=== PATIENT | male | born 1935 | race Caucasian/White ===

== ENCOUNTER 2016-08-09 15:44 | Inpatient (IN) | payer OTHER ==
[~2016-08-09] VITALS: Ht 180.3 cm; Wt 107.5 kg
[2016-08-09 16:28] LABS: Urine Bilirubin Negative (Negative); Urine Color Yellow (Yellow); Urine Glucose Normal (Normal); Urine Ketone Negative (Negative); Urine Nitrite Negative (Negative); Urine RBC 21 /hpf (0 - 3); Urine Urobilinogen Normal (Negative); Urine pH 5.5 (5.0-8.0)
[2016-08-09 16:33] LABS: Urine Blood 3+ /uL (Negative)
[2016-08-09 17:36] LABS: DEFINITIVE VIEW TRANSMISSION; Hematocrit 34.2 % (41.0-53.0); Hemoglobin 11.1 g/dL (13.5-17.5); Mean Corpuscular Hemoglobin 31.4 pg (28.0-32.0); Mean Corpuscular Hgb Conc. 32.5 g/dL (32.0-36.0); Mean Corpuscular Volume 96.7 fL (80.0-100.0); Mean Platelet Volume 8.9 fL (7.4-10.4); Platelet Count (auto) 228 10^3/uL (140-450); Red Cell Distribution Width 14.9 % (11.6-16.0)
[2016-08-09 17:47] LABS: Albumin 3.1 g/dL (3.4-5.0); BUN/Creatinine Ratio 14.5; Bilirubin, Total 0.5 mg/dL (0.2-1.0); Calcium 8.5 mg/dL (8.5-10.1); Magnesium 1.7 mg/dL (1.6-2.6); Potassium 4.2 mmol/L (3.5-5.1); Total Protein 6.6 g/dL (6.4-8.2)
[2016-08-09 18:03] LABS: White Blood Cell 33.9 10^3/uL (4.4-10.8)
[2016-08-09 18:04] LABS: Metamyelocytes % 0; Myelocytes % 0; Promyelocytes % 0; Reactive Lymphocytes 0
[2016-08-09 18:45] LABS: Platelet Estimate Adequate
[2016-08-09] MEDS ORDERED: SODIUM CHLORIDE 0.9% 1,000 ML IVB ONE (19:21)
[2016-08-09] MEDS ORDERED: cefTRIAXone 1GM/50ML D5W 50 ML IV ONE (19:30)
[2016-08-09 19:39] LABS: Amylase 74 U/L (25-115)
[2016-08-09 19:49] LABS: Partial Thromboplastin Time 28.5 sec (22.64-33.71)
[2016-08-09 19:58] LABS: INR 1.23 (0.9-1.15); Prothrombin Time 12.7 sec (9.37-12.3)
[2016-08-09] MEDS: SODIUM CHLORIDE 0.9% 1,000 ML IV SCH (22:22)
[2016-08-09] MEDS ORDERED: LACTULOSE 20Gm/30ML SOLN PO PRN (22:30)
[2016-08-09] MEDS ORDERED: MORPHINE SULFATE 4 MG/ML SYRG IV PRN (22:45)
[2016-08-10 00:30] VITALS: BP 159/85
[2016-08-10 01:21] LABS: BUN/Creatinine Ratio 12.9; Calcium 7.9 mg/dL (8.5-10.1); Potassium 3.6 mmol/L (3.5-5.1)
[2016-08-10 05:00] VITALS: BP 140/94
[2016-08-10 05:49] LABS: DEFINITIVE VIEW TRANSMISSION; Hemoglobin 9.9 g/dL (13.5-17.5); Mean Corpuscular Hemoglobin 31.1 pg (28.0-32.0); Mean Corpuscular Hgb Conc. 31.8 g/dL (32.0-36.0); Platelet Count (auto) 197 10^3/uL (140-450); Red Cell Distribution Width 14.8 % (11.6-16.0); White Blood Cell 28.2 10^3/uL (4.4-10.8)
[2016-08-10] MEDS: SODIUM CHLORIDE 0.9% 1,000 ML IV SCH ×2 (06:22→22:22)
[2016-08-10 06:31] LABS: Albumin 2.7 g/dL (3.4-5.0); BUN/Creatinine Ratio 14.8; Bilirubin, Total 0.4 mg/dL (0.2-1.0); Calcium 8.2 mg/dL (8.5-10.1); Potassium 4.1 mmol/L (3.5-5.1); Total Protein 5.9 g/dL (6.4-8.2)
[2016-08-10 06:47] LABS: Metamyelocytes % 0; Myelocytes % 0; Promyelocytes % 0; Reactive Lymphocytes 0
[2016-08-10] MEDS: ONDANSETRON HCL 4 MG/2 ML VIAL IV PRN (08:03)
[2016-08-10 08:16] LABS: Platelet Estimate Adequate
[2016-08-10 09:19] VITALS: BP 153/97
[2016-08-10] MEDS: PANTOPRAZOLE SODIUM 40 MG/10 ML VIAL IV SCH (09:26)
[2016-08-10] MEDS: ASPirin 81 mg TAB PO SCH (09:27)
[2016-08-10] MEDS: METOPROLOL TARTRATE 50 MG TAB PO SCH ×2 (09:27→21:51)
[2016-08-10] MEDS: NIFEdipine ER 30 MG TAB PO SCH (09:28)
[2016-08-10] MEDS ORDERED: ENOXAPARIN SOD 30 MG/0.3 ML SYRINGE SC SCH (10:00)
[2016-08-10 13:00] VITALS: BP 157/65
[2016-08-10] MEDS ORDERED: MORPHINE SULFATE 4 MG/ML SYRG IV PRN (13:00)
[2016-08-10] MEDS ORDERED: HYDROcodone-ACET 5/325MG TAB PO PRN (13:00)
[2016-08-10] MEDS ORDERED: TEMAZEPAM 15 MG CAP PO PRN (13:00)
[2016-08-10 17:22] VITALS: BP 146/56
[2016-08-10] MEDS: cefTRIAXone 1GM/50ML D5W 50 ML IV SCH (21:07)
[2016-08-10] MEDS: ATORVASTATIN 20 MG TAB PO SCH (21:50)
[2016-08-10] MEDS: traZODone HCL 50 MG TAB PO SCH (21:50)
[2016-08-10 22:00] VITALS: BP 133/62
[2016-08-11] MEDS: SODIUM CHLORIDE 0.9% 1,000 ML IV SCH ×2 (01:16→18:22)
[2016-08-11 05:00] VITALS: BP 122/76
[2016-08-11 06:05] LABS: DEFINITIVE VIEW TRANSMISSION; Hematocrit 30.5 % (41.0-53.0); Hemoglobin 9.9 g/dL (13.5-17.5); Mean Corpuscular Hemoglobin 31.6 pg (28.0-32.0); Mean Corpuscular Hgb Conc. 32.6 g/dL (32.0-36.0); Mean Corpuscular Volume 96.8 fL (80.0-100.0); Mean Platelet Volume 9.1 fL (7.4-10.4); Platelet Count (auto) 174 10^3/uL (140-450); Red Cell Distribution Width 14.1 % (11.6-16.0); White Blood Cell 25.8 10^3/uL (4.4-10.8)
[2016-08-11 06:34] LABS: BUN/Creatinine Ratio 14.5; Calcium 8.1 mg/dL (8.5-10.1)
[2016-08-11 07:35] LABS: Metamyelocytes % 0; Myelocytes % 0; Promyelocytes % 0; Reactive Lymphocytes 0
[2016-08-11 08:27] LABS: Platelet Estimate Adequate
[2016-08-11 08:28] LABS: RBC Morphology Normal
[2016-08-11 09:00] VITALS: BP 123/75
[2016-08-11] MEDS: ASPirin 81 mg TAB PO SCH (09:58)
[2016-08-11] MEDS: METOPROLOL TARTRATE 50 MG TAB PO SCH ×2 (09:59→22:00)
[2016-08-11] MEDS: NIFEdipine ER 30 MG TAB PO SCH (09:59)
[2016-08-11] MEDS: PANTOPRAZOLE SODIUM 40 MG/10 ML VIAL IV SCH (10:00)
[2016-08-11 13:03] VITALS: BP 137/62
[2016-08-11] MEDS ORDERED: LIDOCAINE 2%HCL (LOCAL ANESTH.) INJ 20ML MDV ONE ×2 (13:47)
[2016-08-11] MEDS ORDERED: fentaNYL CITRATE 100 MCG/2 ML VL ONE (13:48)
[2016-08-11] MEDS ORDERED: MIDAZOLAM HCL 1MG/1ML-2 ML VIAL ONE (13:49)
[2016-08-11] MEDS ORDERED: IODIXANOL 320MG/ML 100ML BTL IV ONE (13:49)
[2016-08-11 16:58] VITALS: BP 135/66
[2016-08-11] MEDS: ATORVASTATIN 20 MG TAB PO SCH (21:09)
[2016-08-11] MEDS: traZODone HCL 50 MG TAB PO SCH (21:10)
[2016-08-11 22:00] VITALS: BP 135/70
[2016-08-11] MEDS: cefTRIAXone 1GM/50ML D5W 50 ML IV SCH (22:28)
[2016-08-12] MEDS: SODIUM CHLORIDE 0.9% 1,000 ML IV SCH ×2 (04:22→13:22)
[2016-08-12 05:06] LABS: PSA Free 6.03 ng/mL; Prostate Specific Antigen 60.7 ng/mL (0.0-4.0)
[2016-08-12 05:30] VITALS: BP 141/84
[2016-08-12 06:45] LABS: DEFINITIVE VIEW TRANSMISSION; Hematocrit 30.8 % (41.0-53.0); Hemoglobin 10.2 g/dL (13.5-17.5); Mean Corpuscular Volume 96.7 fL (80.0-100.0); Platelet Count (auto) 201 10^3/uL (140-450); White Blood Cell 27.1 10^3/uL (4.4-10.8)
[2016-08-12 07:03] LABS: BUN/Creatinine Ratio 14.9; Potassium 4.1 mmol/L (3.5-5.1)
[2016-08-12 07:18] LABS: Metamyelocytes % 0; Myelocytes % 0; Promyelocytes % 0; Reactive Lymphocytes 0
[2016-08-12 07:37] LABS: Platelet Estimate Adequate; RBC Morphology Normal
[2016-08-12 09:00] VITALS: BP 133/73
[2016-08-12] MEDS ORDERED: IOHEXOL 350 MG/ML 100ML IJ ONE (09:16)
[2016-08-12] MEDS ORDERED: LIDOCAINE 2%HCL (LOCAL ANESTH.) INJ 20ML MDV ONE ×2 (09:41→09:54)
[2016-08-12] MEDS: METOPROLOL TARTRATE 50 MG TAB PO SCH ×2 (10:00→22:00)
[2016-08-12] MEDS: NIFEdipine ER 30 MG TAB PO SCH (10:00)
[2016-08-12] MEDS ORDERED: fentaNYL CITRATE 100 MCG/2 ML VL ONE (10:11)
[2016-08-12] MEDS: PANTOPRAZOLE SODIUM 40 MG/10 ML VIAL IV SCH (11:53)
[2016-08-12] MEDS: ASPirin 81 mg TAB PO SCH (11:53)
[2016-08-12 13:00] VITALS: BP 136/78
[2016-08-12 15:00] VITALS: BP 158/51
[2016-08-12] MEDS: cefTRIAXone 1GM/50ML D5W 50 ML IV SCH (21:31)
[2016-08-12] MEDS: ONDANSETRON HCL 4 MG/2 ML VIAL IV PRN (21:31)
[2016-08-12 22:00] VITALS: BP 148/69
[2016-08-12] MEDS: ATORVASTATIN 20 MG TAB PO SCH (22:14)
[2016-08-12] MEDS: traZODone HCL 50 MG TAB PO SCH (22:14)
[2016-08-12 23:45] VITALS: BP 128/66
[2016-08-13] MEDS: SODIUM CHLORIDE 0.9% 1,000 ML IV SCH (00:26)
[2016-08-13 05:30] VITALS: BP 151/77
[2016-08-13 08:46] VITALS: BP 151/83
[2016-08-13] MEDS: METOPROLOL TARTRATE 50 MG TAB PO SCH (09:50)
[2016-08-13] MEDS: ASPirin 81 mg TAB PO SCH (09:52)
[2016-08-13] MEDS: PANTOPRAZOLE SODIUM 40 MG/10 ML VIAL IV SCH (09:52)
[2016-08-13] MEDS: NIFEdipine ER 30 MG TAB PO SCH (09:52)
[2016-08-13 11:49] VITALS: BP 163/75
[2016-08-13 16:13] VITALS: BP 151/83
== END 2016-08-13 16:36 | disposition home health service (06) | DRG 872 ==
LOC: ER 15:46 → EDUNIT# 15:47 → TELE 15:47 → TELE-WESTW 23:38
PROVIDERS: ADMIT Family Medicine; ATTEND Internal Medicine
PROC: 0T9330Z Drainage of Right Kidney Pelvis with Drainage Device, Percutaneous Approach (ICD-10-PCS; principal; 2016-08-11)
PROC: BT1D1ZZ Fluoroscopy of Right Kidney, Ureter and Bladder using Low Osmolar Contrast (ICD-10-PCS; 2016-08-11)
PROC: 0T25X0Z Change Drainage Device in Kidney, External Approach (ICD-10-PCS; 2016-08-12)
DX: A41.9 Sepsis, unspecified organism (principal); N17.9 Acute kidney failure, unspecified; N13.2 Hydronephrosis with renal and ureteral calculous obstruction; C91.10 Chronic lymphocytic leukemia of B-cell type not having achieved remission; N30.01 Acute cystitis with hematuria; N13.9 Obstructive and reflux uropathy, unspecified; N18.3 Chronic kidney disease, stage 3 (moderate); I12.9 Hypertensive chronic kidney disease with stage 1 through stage 4 chronic kidney disease, or unspecified chronic kidney disease; E78.5 Hyperlipidemia, unspecified; K80.20 Calculus of gallbladder without cholecystitis without obstruction; E66.9 Obesity, unspecified; N40.0 Benign prostatic hyperplasia without lower urinary tract symptoms; C61 Malignant neoplasm of prostate; I71.4 Abdominal aortic aneurysm, without rupture; D63.8 Anemia in other chronic diseases classified elsewhere; G47.00 Insomnia, unspecified; Z82.49 Family history of ischemic heart disease and other diseases of the circulatory system; Z93.6 Other artificial openings of urinary tract status; Z87.442 Personal history of urinary calculi; Z79.899 Other long term (current) drug therapy; Z68.33 Body mass index [BMI] 33.0-33.9, adult; Z71.89 Other specified counseling; Z90.79 Acquired absence of other genital organ(s)
CPT/HCPCS: 36415; 50435; 71010; 74176; 74425; 75984; 80048; 80053; 81001; 82150; 83605; 83690; 83735; 84154; 84484; 85007; 85027; 85610; 85730; 87040; 87081; 87086; 93005; 94761; 96374; C1729; C1769; C9113; J0696; J2250; J2405; Q9967

== ENCOUNTER 2016-09-09 06:34 | Inpatient (IN) | payer OTHER ==
[~2016-09-09] VITALS: Ht 180.3 cm; Wt 98.8 kg
[2016-09-09] MEDS ORDERED: SODIUM CHLORIDE 0.9% 1,000 ML IV ONE (07:17)
[2016-09-09 08:01] LABS: DEFINITIVE VIEW TRANSMISSION; Hematocrit 36.9 % (41.0-53.0); Hemoglobin 11.6 g/dL (13.5-17.5); Mean Corpuscular Hemoglobin 31.1 pg (28.0-32.0); Mean Corpuscular Hgb Conc. 31.5 g/dL (32.0-36.0); Mean Corpuscular Volume 98.8 fL (80.0-100.0); Mean Platelet Volume 10.6 fL (7.4-10.4); Platelet Count (auto) 141 10^3/uL (140-450); Red Cell Distribution Width 15.3 % (11.6-16.0); White Blood Cell 21.8 10^3/uL (4.4-10.8)
[2016-09-09 08:02] LABS: Metamyelocytes % 0; Myelocytes % 0; Promyelocytes % 0; Reactive Lymphocytes 0
[2016-09-09 08:11] LABS: Albumin 3.4 g/dL (3.4-5.0); Calcium 8.6 mg/dL (8.5-10.1); Magnesium 1.9 mg/dL (1.6-2.6)
[2016-09-09 08:38] LABS: Bilirubin, Total 0.8 mg/dL (0.2-1.0); Total Protein 6.9 g/dL (6.4-8.2)
[2016-09-09 08:55] LABS: Platelet Estimate Adequate
[2016-09-09 08:56] LABS: Stomatocytes Few
[2016-09-09] MEDS ORDERED: PIPERACILLIN-TAZOB 3.375GM 100 ML IV ONE (12:30)
[2016-09-09] MEDS ORDERED: PROMETHAZINE HCL 25 MG/ML 1ML IV PRN (12:30)
[2016-09-09] MEDS ORDERED: LORazepam 0.5 MG TAB PO PRN (12:30)
[2016-09-09] MEDS ORDERED: HYDROcodone-ACET 5/325MG TAB PO PRN (12:30)
[2016-09-09] MEDS ORDERED: DEXTROSE (50%) 50ML SYRG IV PRN (12:30)
[2016-09-09] MEDS ORDERED: MORPHINE SULF INJ 2 MG/ML SYRINGE 1ML IV PRN ×2 (12:30)
[2016-09-09] MEDS ORDERED: ACETAMINOPHEN 500 MG TAB PO PRN (12:30)
[2016-09-09] MEDS ORDERED: NITROGLYCERIN 0.4 MG SL TAB SL PRN (12:30)
[2016-09-09] MEDS: SODIUM CHLORIDE 0.9% 1,000 ML IV SCH ×2 (12:38→17:11)
[2016-09-09 12:39] LABS: Urine Bilirubin Negative (Negative); Urine Blood TRACE /uL (Negative); Urine Color Yellow (Yellow); Urine Glucose Normal (Normal); Urine Ketone Negative (Negative); Urine RBC 6 /hpf (0 - 3); Urine Urobilinogen Normal (Negative); Urine pH 6.5 (5.0-8.0)
[2016-09-09] MEDS ORDERED: FAMOTIDINE 20 MG TAB PO ONE (12:45)
[2016-09-09] MEDS ORDERED: hydrALAZINE HCL 20 MG/ML VL IV PRN (12:45)
[2016-09-09 12:48] LABS: Urine Nitrite POSITIVE (Negative)
[2016-09-09 14:17] VITALS: BP 159/78
[2016-09-09] MEDS: ACCU-CHEK COMFORT CURVE STRIP VI SCH (18:12)
[2016-09-09] MEDS: PIPERACILLIN-TAZOB 3.375GM 100 ML IV SCH (18:12)
[2016-09-09] MEDS: TEMAZEPAM 15 MG CAP PO PRN (21:14)
[2016-09-09] MEDS: FAMOTIDINE 20 MG TAB PO SCH (21:15)
[2016-09-09 21:43] VITALS: BP 152/83
[2016-09-10] MEDS: ACCU-CHEK COMFORT CURVE STRIP VI SCH ×3 (00:06→11:35)
[2016-09-10 05:02] VITALS: BP 149/72
[2016-09-10] MEDS: PIPERACILLIN-TAZOB 3.375GM 100 ML IV SCH ×4 (06:00→17:42)
[2016-09-10 06:24] LABS: DEFINITIVE VIEW TRANSMISSION; Hematocrit 34.3 % (41.0-53.0); Hemoglobin 10.7 g/dL (13.5-17.5); Mean Corpuscular Hemoglobin 31.2 pg (28.0-32.0); Mean Corpuscular Hgb Conc. 31.1 g/dL (32.0-36.0); Mean Corpuscular Volume 100.1 fL (80.0-100.0); Mean Platelet Volume 10.7 fL (7.4-10.4); Platelet Count (auto) 117 10^3/uL (140-450); Red Cell Distribution Width 15.5 % (11.6-16.0); White Blood Cell 18.2 10^3/uL (4.4-10.8)
[2016-09-10 06:27] LABS: Metamyelocytes % 0; Myelocytes % 0; Promyelocytes % 0; Reactive Lymphocytes 0
[2016-09-10 06:35] LABS: INR 1.11 (0.9-1.15); Partial Thromboplastin Time 27.8 sec (22.64-33.71); Prothrombin Time 11.4 sec (9.37-12.3)
[2016-09-10 06:38] LABS: Albumin 2.9 g/dL (3.4-5.0); Calcium 8.3 mg/dL (8.5-10.1); Potassium 4.3 mmol/L (3.5-5.1)
[2016-09-10 07:07] LABS: Bilirubin, Total 1.3 mg/dL (0.2-1.0); Total Protein 6.1 g/dL (6.4-8.2)
[2016-09-10 08:00] VITALS: BP 149/72
[2016-09-10] MEDS: SODIUM CHLORIDE 0.9% 1,000 ML IV SCH ×3 (08:24→21:08)
[2016-09-10 09:00] VITALS: BP 141/79
[2016-09-10] MEDS: FAMOTIDINE 20 MG TAB PO SCH ×2 (10:00→21:07)
[2016-09-10 10:37] LABS: Platelet Estimate Decreased
[2016-09-10 17:00] VITALS: BP 174/76
[2016-09-10] MEDS: TEMAZEPAM 15 MG CAP PO PRN (21:07)
[2016-09-10 21:41] VITALS: BP 149/70
[2016-09-11] VITALS (8 sets, daily range): BP systolic 123–157; BP diastolic 60–88
[2016-09-11] MEDS: cefTRIAXone 1GM/50ML D5W 50 ML IV SCH (09:37)
[2016-09-11] MEDS: FAMOTIDINE 20 MG TAB PO SCH ×2 (09:37→21:27)
[2016-09-11] MEDS ORDERED: MIDAZOLAM HCL 1MG/1ML-2 ML VIAL ONE (12:24)
[2016-09-11] MEDS ORDERED: fentaNYL CITRATE 100 MCG/2 ML VL ONE (12:24)
[2016-09-11] MEDS ORDERED: IODIXANOL 320MG/ML 100ML BTL IV ONE (12:33)
[2016-09-11] MEDS ORDERED: LIDOCAINE 2%HCL (LOCAL ANESTH.) INJ 20ML MDV ONE ×2 (12:33→12:57)
[2016-09-11] MEDS ORDERED: LABETALOL HCL 5 MG/ML 4ML SYRINGE IV ONE (12:52)
[2016-09-11] MEDS: TEMAZEPAM 15 MG CAP PO PRN (21:27)
[2016-09-11] MEDS: SULFAMETHOX W/TRIMETH(800/160MG) DS TAB PO SCH (21:30)
[2016-09-11] MEDS: SODIUM CHLORIDE 0.9% 1,000 ML IV SCH (22:49)
[2016-09-12 04:56] VITALS: BP 156/70
[2016-09-12 08:00] VITALS: BP 120/72
[2016-09-12 08:30] VITALS: BP 131/97
[2016-09-12] MEDS: SULFAMETHOX W/TRIMETH(800/160MG) DS TAB PO SCH (10:17)
[2016-09-12] MEDS: FAMOTIDINE 20 MG TAB PO SCH (10:17)
[2016-09-12] MEDS: cefTRIAXone 1GM/50ML D5W 50 ML IV SCH (10:18)
[2016-09-12] MEDS: SODIUM CHLORIDE 0.9% 1,000 ML IV SCH (10:53)
[2016-09-12 13:00] VITALS: BP 167/77
[2016-09-12 17:00] VITALS: BP 153/71
[2016-09-12 17:37] VITALS: BP 167/77
== END 2016-09-12 18:55 | disposition home or self-care (01) | DRG 698 ==
LOC: ER 06:41 → EDUNIT# 06:42 → TELE 06:42 → TELE-E-ADS 14:20 → TELE-WESTW 15:23 → WEST WING 09-11 17:26
PROVIDERS: ADMIT Internal Medicine; ATTEND Internal Medicine Pulmonary Disease
PROC: 0T933ZZ Drainage of Right Kidney Pelvis, Percutaneous Approach (ICD-10-PCS; principal; 2016-09-11)
DX: T83.022A Displacement of nephrostomy catheter, initial encounter (principal); A41.9 Sepsis, unspecified organism; C91.10 Chronic lymphocytic leukemia of B-cell type not having achieved remission; N12 Tubulo-interstitial nephritis, not specified as acute or chronic; D63.8 Anemia in other chronic diseases classified elsewhere; E66.9 Obesity, unspecified; I10 Essential (primary) hypertension; I71.4 Abdominal aortic aneurysm, without rupture; J44.9 Chronic obstructive pulmonary disease, unspecified; K80.20 Calculus of gallbladder without cholecystitis without obstruction; Y73.2 Prosthetic and other implants, materials and accessory gastroenterology and urology devices associated with adverse incidents; K76.9 Liver disease, unspecified; F17.200 Nicotine dependence, unspecified, uncomplicated; B96.89 Other specified bacterial agents as the cause of diseases classified elsewhere; Z79.899 Other long term (current) drug therapy; Z79.82 Long term (current) use of aspirin; Z82.49 Family history of ischemic heart disease and other diseases of the circulatory system; Y92.89 Other specified places as the place of occurrence of the external cause; Z90.79 Acquired absence of other genital organ(s); Z85.46 Personal history of malignant neoplasm of prostate; Z85.828 Personal history of other malignant neoplasm of skin; Z87.442 Personal history of urinary calculi
CPT/HCPCS: 36415; 71010; 74176; 74425; 76705; 76942; 80053; 81001; 81002; 82962; 83036; 83690; 83735; 85007; 85027; 85610; 85652; 85730; 86141; 87040; 87086; 87088; 87186; 96361; 96365; J0696; J2250; J2543; J3490; Q9967

== ENCOUNTER → 2016-10-05 | Outpatient (CLI) | payer OTHER ==
[~2016-10-05] MED LIST: ASPI81TA27 PO; METO25TA5 PO; NIFE90TA30 PO; OMEP20CA5 OR; SIMV-13 PO
[2016-10-05 17:00] LABS: BUN/Creatinine Ratio 20.2; Calcium 8.5 mg/dL (8.5-10.1); Potassium 4.7 mmol/L (3.5-5.1)
== END | disposition home or self-care (01) ==
LOC: LAB 16:21
PROVIDERS: ATTEND Internal Medicine
DX: N18.3 Chronic kidney disease, stage 3 (moderate) (principal)
CPT/HCPCS: 36415; 80048

== ENCOUNTER → 2016-11-25 | Outpatient (CLI) | payer OTHER ==
[~2016-11-25] MED LIST changes: +IOHEXOL 300 MG/ML 100ML BOTTLE IJ ONE; +LIDOCAINE 2%HCL (LOCAL ANESTH.) INJ 20ML MDV ONE; +cefTRIAXone SOD 1,000 MG VL ONE
== END | disposition home or self-care (01) ==
LOC: XY 09:42
PROVIDERS: ATTEND Internal Medicine
DX: N13.30 Unspecified hydronephrosis (principal)
CPT/HCPCS: 50435; 74425; 76000; 76775; 96365; C1729; C1769; J0696; Q9967

== ENCOUNTER → 2016-12-08 | Outpatient (CLI) | payer OTHER ==
[~2016-12-08] MED LIST changes: -IOHEXOL 300 MG/ML 100ML BOTTLE IJ ONE; -LIDOCAINE 2%HCL (LOCAL ANESTH.) INJ 20ML MDV ONE; -cefTRIAXone SOD 1,000 MG VL ONE
[2016-12-08 11:27] LABS: DEFINITIVE VIEW TRANSMISSION; Hematocrit 30.8 % (41.0-53.0); Mean Corpuscular Hemoglobin 31.8 pg (28.0-32.0); Mean Corpuscular Hgb Conc. 32.6 g/dL (32.0-36.0); Mean Corpuscular Volume 97.6 fL (80.0-100.0); Mean Platelet Volume 9.4 fL (7.4-10.4); Platelet Count (auto) 225 10^3/uL (140-450); Red Cell Distribution Width 15.8 % (11.6-16.0); White Blood Cell 18.5 10^3/uL (4.4-10.8)
[2016-12-08 11:35] LABS: Metamyelocytes % 0; Myelocytes % 0; Promyelocytes % 0; Reactive Lymphocytes 0
[2016-12-08 11:45] LABS: BUN/Creatinine Ratio 16.8; Bilirubin, Total 0.3 mg/dL (0.2-1.0); Calcium 8.7 mg/dL (8.5-10.1); Potassium 4.8 mmol/L (3.5-5.1); Total Protein 6.9 g/dL (6.4-8.2)
[2016-12-08 14:04] LABS: Platelet Estimate Adequate
[2016-12-08 14:05] LABS: Stomatocytes Few
[2016-12-08 14:06] LABS: Ovalocytes FEW
== END | disposition home or self-care (01) ==
LOC: LAB 10:51
PROVIDERS: ATTEND Internal Medicine
DX: N18.3 Chronic kidney disease, stage 3 (moderate) (principal); I10 Essential (primary) hypertension
CPT/HCPCS: 36415; 80053; 85007; 85027

== ENCOUNTER → 2017-01-12 | Outpatient (CLI) | payer OTHER ==
[~2017-01-12] MED LIST changes: +FUROSEMIDE 40 MG/4 ML VIAL ONE; -OMEP20CA5 OR; +OMEP20CA74 OR
== END | disposition home or self-care (01) ==
LOC: XY 07:41
PROVIDERS: ATTEND Internal Medicine
DX: N40.0 Benign prostatic hyperplasia without lower urinary tract symptoms (principal)
CPT/HCPCS: 36415; 78707; 84132; A9562; J1940

== ENCOUNTER → 2017-01-28 | Outpatient (CLI) | payer OTHER ==
[~2017-01-28] MED LIST changes: -FUROSEMIDE 40 MG/4 ML VIAL ONE
[2017-01-28 12:50] LABS: Calcium 8.7 mg/dL (8.5-10.1); Potassium 4.4 mmol/L (3.5-5.1)
== END | disposition home or self-care (01) ==
LOC: LAB 10:07
PROVIDERS: ATTEND Internal Medicine
DX: N18.3 Chronic kidney disease, stage 3 (moderate) (principal); C61 Malignant neoplasm of prostate
CPT/HCPCS: 36415; 80048; 84153

== ENCOUNTER → 2017-03-30 | Day surgery (SDC) | payer OTHER ==
[~2017-03-30] VITALS: Ht 180.3 cm; Wt 97.5 kg
[~2017-03-30] MED LIST changes: +IODIXANOL 320MG/ML 100ML BTL IV ONE; +LIDOCAINE 2%HCL (LOCAL ANESTH.) INJ 20ML MDV ONE; +MIDAZOLAM HCL 1MG/1ML-2 ML VIAL ONE; +cefTRIAXone 1GM/50ML D5W 50 ML IV ONE; +fentaNYL CITRATE 100 MCG/2 ML VL ONE
== END | disposition home or self-care (01) ==
LOC: XY 09:27 → SUR 09:30
PROVIDERS: ATTEND Internal Medicine
DX: N13.5 Crossing vessel and stricture of ureter without hydronephrosis (principal); I10 Essential (primary) hypertension; E78.00 Pure hypercholesterolemia, unspecified; I71.9 Aortic aneurysm of unspecified site, without rupture; J44.9 Chronic obstructive pulmonary disease, unspecified; C61 Malignant neoplasm of prostate; F41.9 Anxiety disorder, unspecified; F17.210 Nicotine dependence, cigarettes, uncomplicated
CPT/HCPCS: 50435; 77002; C1769; C1894; C2625; J0696; J1644; J7030; Q9967; 99152; J2250

== ENCOUNTER → 2017-05-24 | Outpatient (CLI) | payer OTHER ==
[~2017-05-24] MED LIST changes: -IODIXANOL 320MG/ML 100ML BTL IV ONE; -LIDOCAINE 2%HCL (LOCAL ANESTH.) INJ 20ML MDV ONE; -MIDAZOLAM HCL 1MG/1ML-2 ML VIAL ONE; -cefTRIAXone 1GM/50ML D5W 50 ML IV ONE; -fentaNYL CITRATE 100 MCG/2 ML VL ONE
[2017-05-24 10:14] LABS: Hematocrit 36.5 % (41.0-53.0); Hemoglobin 11.9 g/dL (13.5-17.5); Mean Corpuscular Hemoglobin 31.5 pg (28.0-32.0); Mean Corpuscular Hgb Conc. 32.8 g/dL (32.0-36.0); Mean Corpuscular Volume 96.1 fL (80.0-100.0); Platelet Count (auto) 204 10^3/uL (140-450); Red Cell Distribution Width 16.2 % (11.8-14.3); White Blood Cell 18.4 10^3/uL (4.4-10.8)
[2017-05-24 10:27] LABS: Metamyelocytes % 0; Myelocytes % 0; Promyelocytes % 0
[2017-05-24 10:40] LABS: Urine Bilirubin Negative (Negative); Urine Blood TRACE /uL (Negative); Urine Color Yellow (Yellow); Urine Glucose Normal (Normal); Urine Ketone Negative (Negative); Urine Nitrite POSITIVE (Negative); Urine RBC 23 /hpf (0 - 3); Urine Squamous Epithelial Cell FEW /hpf (<5); Urine Urobilinogen Normal (Negative); Urine pH 8.5 (5.0-8.0)
[2017-05-24 10:41] LABS: Albumin 3.3 g/dL (3.4-5.0); BUN/Creatinine Ratio 16.9; Bilirubin, Total 0.7 mg/dL (0.2-1.0); Calcium 9.1 mg/dL (8.5-10.1); Potassium 4.3 mmol/L (3.5-5.1); Total Protein 7.6 g/dL (6.4-8.2); Uric Acid 6.8 mg/dL (3.5-7.2)
[2017-05-24 14:36] LABS: Reactive Lymphocytes 6
[2017-05-24 14:37] LABS: Platelet Estimate Adequate
== END | disposition home or self-care (01) ==
LOC: LAB 08:50
PROVIDERS: ATTEND Internal Medicine
DX: C61 Malignant neoplasm of prostate (principal); I12.9 Hypertensive chronic kidney disease with stage 1 through stage 4 chronic kidney disease, or unspecified chronic kidney disease; N18.3 Chronic kidney disease, stage 3 (moderate); G60.9 Hereditary and idiopathic neuropathy, unspecified
CPT/HCPCS: 36415; 80053; 80061; 81001; 82043; 83970; 84153; 84439; 84443; 84550; 85007; 85027; 85652

== ENCOUNTER → 2017-06-09 | Outpatient (CLI) | payer OTHER ==
[~2017-06-09] MED LIST changes: +IOHEXOL 300 MG/ML 100ML BOTTLE IJ ONE; +LIDOCAINE 2%HCL (LOCAL ANESTH.) INJ 20ML MDV ONE
== END | disposition home or self-care (01) ==
LOC: XYW 10:00
PROVIDERS: ATTEND Internal Medicine
DX: Z46.6 Encounter for fitting and adjustment of urinary device (principal); N13.5 Crossing vessel and stricture of ureter without hydronephrosis; C79.9 Secondary malignant neoplasm of unspecified site
CPT/HCPCS: 75984; 76000; C1729; C1769; C2625; Q9967

== ENCOUNTER → 2017-08-10 | Outpatient (CLI) | payer OTHER | END | disposition home or self-care (01) | LOC: XYW 10:54 → EDSTATUS 11:06 | PROVIDERS: ATTEND Family Medicine | DX: I12.9 Hypertensive chronic kidney disease with stage 1 through stage 4 chronic kidney disease, or unspecified chronic kidney disease (principal); N18.9 Chronic kidney disease, unspecified; Z93.6 Other artificial openings of urinary tract status | CPT/HCPCS: 74425; 76000; C1729; C1769; Q9967 ==

== ENCOUNTER → 2017-09-16 | Outpatient (CLI) | payer OTHER ==
[~2017-09-16] MED LIST changes: -IOHEXOL 300 MG/ML 100ML BOTTLE IJ ONE; -LIDOCAINE 2%HCL (LOCAL ANESTH.) INJ 20ML MDV ONE
[2017-09-16 10:12] LABS: Hematocrit 34.4 % (41.0-53.0); Hemoglobin 11.3 g/dL (13.5-17.5); Mean Corpuscular Hemoglobin 32.3 pg (28.0-32.0); Mean Corpuscular Hgb Conc. 32.9 g/dL (32.0-36.0); Mean Corpuscular Volume 98.2 fL (80.0-100.0); Platelet Count (auto) 156 10^3/uL (140-450); Red Cell Distribution Width 16.7 % (11.8-14.3); White Blood Cell 15.6 10^3/uL (4.4-10.8)
[2017-09-16 10:18] LABS: Band Neutrophils % (manual) 0; Basophils % (manual) 0 (0.0-2.0); Blast Cells 0; Eosinophils % (manual) 0 (0-7); Metamyelocytes % 0; Myelocytes % 0; Promyelocytes % 0; Reactive Lymphocytes 0
[2017-09-16 10:29] LABS: Albumin 3.3 g/dL (3.4-5.0); BUN/Creatinine Ratio 19.1; Calcium 8.5 mg/dL (8.5-10.1); Potassium 4.4 mmol/L (3.5-5.1)
[2017-09-16 10:31] LABS: Bilirubin, Total 0.2 mg/dL (0.2-1.0); Total Protein 6.9 g/dL (6.4-8.2)
[2017-09-16 11:16] LABS: Lymphocytes % (manual) 74 (10.0-50.0); Monocytes % (manual) 9 (0-12)
== END | disposition home or self-care (01) ==
LOC: LAB 09:53
PROVIDERS: ATTEND Internal Medicine
DX: I12.9 Hypertensive chronic kidney disease with stage 1 through stage 4 chronic kidney disease, or unspecified chronic kidney disease (principal); N18.3 Chronic kidney disease, stage 3 (moderate); C91.10 Chronic lymphocytic leukemia of B-cell type not having achieved remission
CPT/HCPCS: 36415; 80053; 85007; 85027

== ENCOUNTER → 2017-11-17 | Outpatient (CLI) | payer OTHER ==
[~2017-11-17] MED LIST changes: +IOHEXOL 300 MG/ML 100ML BOTTLE IJ ONE; +LIDOCAINE 2% (LOCAL ANESTH.) PF 5ml SDV ONE
== END | disposition home or self-care (01) ==
LOC: XY 12:41
PROVIDERS: ATTEND Internal Medicine
DX: Z46.6 Encounter for fitting and adjustment of urinary device (principal); I72.9 Aneurysm of unspecified site; J44.9 Chronic obstructive pulmonary disease, unspecified; C61 Malignant neoplasm of prostate; F41.9 Anxiety disorder, unspecified; F17.210 Nicotine dependence, cigarettes, uncomplicated
CPT/HCPCS: 50387; 76000; C1769; C2625; Q9967

== ENCOUNTER → 2018-03-10 | Outpatient (CLI) | payer OTHER ==
[~2018-03-10] MED LIST changes: -IOHEXOL 300 MG/ML 100ML BOTTLE IJ ONE; -LIDOCAINE 2% (LOCAL ANESTH.) PF 5ml SDV ONE
== END | disposition home or self-care (01) ==
LOC: LAB 08:42
PROVIDERS: ATTEND Urology
DX: C61 Malignant neoplasm of prostate (principal); I12.9 Hypertensive chronic kidney disease with stage 1 through stage 4 chronic kidney disease, or unspecified chronic kidney disease; N18.3 Chronic kidney disease, stage 3 (moderate); J44.9 Chronic obstructive pulmonary disease, unspecified; Z87.891 Personal history of nicotine dependence
CPT/HCPCS: 84154

== ENCOUNTER → 2018-04-22 | Outpatient (CLI) | payer OTHER ==
[2018-04-22 08:36] LABS: Urine Bacteria FEW /hpf (None Seen); Urine Blood 2+ /uL (Negative); Urine Specific Gravity 1.014 (1.001-1.035); Urine WBC 99 /hpf (0 - 3); Urine WBC Clumps PRESENT /hpf (None Seen)
[2018-04-22 09:31] LABS: Hematocrit 37.7 % (41.0-53.0); Hemoglobin 12.2 g/dL (13.5-17.5); Mean Corpuscular Hemoglobin 32.1 pg (28.0-32.0); Mean Corpuscular Hgb Conc. 32.5 g/dL (32.0-36.0); Mean Corpuscular Volume 98.7 fL (80.0-100.0); Platelet Count (auto) 162 10^3/uL (140-450); Red Blood Cells 3.82 10^6/uL (4.5-5.90); White Blood Cell 18.1 10^3/uL (4.4-10.8)
[2018-04-22 09:38] LABS: Basophils % (manual) 0 (0.0-2.0); Blast Cells 0; Metamyelocytes % 0; Monocytes % (manual) 0 (0-12); Myelocytes % 0; Promyelocytes % 0
[2018-04-22 10:18] LABS: Albumin 3.4 g/dL (3.4-5.0); BUN/Creatinine Ratio 13.7; Bilirubin, Total 0.7 mg/dL (0.2-1.0); Calcium 8.3 mg/dL (8.5-10.1); Potassium 4.2 mmol/L (3.5-5.1); Total Protein 7.2 g/dL (6.4-8.2)
[2018-04-22 11:59] LABS: Band Neutrophils % (manual) 3; Eosinophils % (manual) 2 (0-7); Lymphocytes % (manual) 64 (10.0-50.0); Reactive Lymphocytes 3
== END | disposition home or self-care (01) ==
LOC: LAB 07:46
PROVIDERS: ATTEND Internal Medicine
DX: C61 Malignant neoplasm of prostate (principal); I10 Essential (primary) hypertension; J44.9 Chronic obstructive pulmonary disease, unspecified; Z87.891 Personal history of nicotine dependence
CPT/HCPCS: 36415; 80053; 80061; 81001; 82043; 84439; 84443; 85007; 85027; 85652

== ENCOUNTER → 2018-05-05 | Outpatient (CLI) | payer OTHER ==
[~2018-05-05] VITALS: Ht 180.3 cm; Wt 102.1 kg
[~2018-05-05] MED LIST changes: +ADENOSINE 86 MG in GIVE UN-DILUTED 0 ML IV STA
[2018-05-05 10:35] VITALS: BP 159/79
== END | disposition home or self-care (01) ==
LOC: XY 09:05
PROVIDERS: ATTEND Internal Medicine
DX: I10 Essential (primary) hypertension (principal)
CPT/HCPCS: 78452; 93017; 93886; A9500; J0153

== ENCOUNTER → 2018-05-19 | Outpatient (CLI) | payer OTHER ==
[~2018-05-19] MED LIST changes: -ADENOSINE 86 MG in GIVE UN-DILUTED 0 ML IV STA; +IOHEXOL 300 MG/ML 100ML BOTTLE IJ ONE; +LIDOCAINE 2% (LOCAL ANESTH.) PF 5ml SDV ONE
== END | disposition home or self-care (01) ==
LOC: XY 09:02
PROVIDERS: ATTEND Internal Medicine
DX: Z46.6 Encounter for fitting and adjustment of urinary device (principal); I72.9 Aneurysm of unspecified site; J44.9 Chronic obstructive pulmonary disease, unspecified; F41.9 Anxiety disorder, unspecified; F17.210 Nicotine dependence, cigarettes, uncomplicated; Z85.46 Personal history of malignant neoplasm of prostate; Z82.49 Family history of ischemic heart disease and other diseases of the circulatory system
CPT/HCPCS: 50387; 74425; A4223; C1729; C1769; J2001; Q9967

== ENCOUNTER → 2018-05-20 | Outpatient (CLI) | payer OTHER ==
[~2018-05-20] MED LIST changes: -IOHEXOL 300 MG/ML 100ML BOTTLE IJ ONE; -LIDOCAINE 2% (LOCAL ANESTH.) PF 5ml SDV ONE
== END | disposition home or self-care (01) ==
LOC: XYW 08:14
PROVIDERS: ATTEND Internal Medicine
DX: Z01.810 Encounter for preprocedural cardiovascular examination (principal); I08.1 Rheumatic disorders of both mitral and tricuspid valves; I70.0 Atherosclerosis of aorta
CPT/HCPCS: 93306

== ENCOUNTER → 2018-06-14 | Outpatient (CLI) | payer OTHER ==
[2018-06-14 07:18] LABS: Urine Specific Gravity 1.014 (1.001-1.035)
[2018-06-14 07:19] LABS: Urine Blood 3+ /uL (Negative); Urine WBC 400 /hpf (0 - 3)
[2018-06-14 07:20] LABS: Urine Bacteria MOD /hpf (None Seen); Urine WBC Clumps PRESENT /hpf (None Seen)
== END | disposition home or self-care (01) ==
LOC: LAB 07:12
PROVIDERS: ATTEND Physician Assistant
DX: N39.0 Urinary tract infection, site not specified (principal)
CPT/HCPCS: 81001; 87086; 87088; 87186

== ENCOUNTER → 2018-06-15 | Outpatient (CLI) | payer OTHER | END | disposition home or self-care (01) | LOC: LAB 16:00 | PROVIDERS: ATTEND Internal Medicine | DX: N39.0 Urinary tract infection, site not specified (principal); Z93.6 Other artificial openings of urinary tract status | CPT/HCPCS: 87086 ==

== ENCOUNTER → 2018-07-25 | Day surgery (SDC) | payer OTHER ==
[2018-07-21 09:26] LABS: Hemoglobin 12.2 g/dL (13.5-17.5); Mean Corpuscular Hemoglobin 32.4 pg (28.0-32.0); Mean Corpuscular Hgb Conc. 32.2 g/dL (32.0-36.0); Mean Corpuscular Volume 100.4 fL (80.0-100.0); Platelet Count (auto) 175 10^3/uL (140-450); Red Blood Cells 3.78 10^6/uL (4.5-5.90); Red Cell Distribution Width 16.8 % (11.8-14.3); White Blood Cell 18.1 10^3/uL (4.4-10.8)
[2018-07-21 09:30] LABS: Band Neutrophils % (manual) 0; Basophils % (manual) 0 (0.0-2.0); Blast Cells 0; Eosinophils % (manual) 0 (0-7); Metamyelocytes % 0; Myelocytes % 0; Promyelocytes % 0
[2018-07-21 09:43] LABS: Urine Bacteria FEW /hpf (None Seen); Urine Blood 2+ /uL (Negative); Urine Specific Gravity 1.016 (1.001-1.035); Urine WBC 265 /hpf (0 - 3); Urine WBC Clumps PRESENT /hpf (None Seen)
[2018-07-21 09:47] LABS: INR 1.08 (0.9-1.15); Partial Thromboplastin Time 26.4 sec (23.78-33.04); Prothrombin Time 11.5 sec (9.27-12.13)
[2018-07-21 09:56] LABS: Reactive Lymphocytes 2
[2018-07-21 09:57] LABS: Lymphocytes % (manual) 78 (10.0-50.0); Monocytes % (manual) 3 (0-12)
[2018-07-21 10:28] LABS: Albumin 3.6 g/dL (3.4-5.0); Calcium 8.6 mg/dL (8.5-10.1); Potassium 5.1 mmol/L (3.5-5.1)
[2018-07-21 10:32] LABS: BUN/Creatinine Ratio 16.6; Bilirubin, Total 0.5 mg/dL (0.2-1.0); Total Protein 7.6 g/dL (6.4-8.2)
[~2018-07-25] VITALS: Ht 180.3 cm; Wt 102.1 kg
[~2018-07-25] MED LIST changes: +ASPI-498 PO; +CHOL20007 PO; +CIPR-217 PO; +CIPROFLOXACIN 400MG/200ML 200 ML IV ONE; +CYAN10009 PO; +DOCU-94 PO; +HYDROmorphone HCL 2 MG/ML VL IV PRN; +IOHEXOL 300 MG/ML 100ML BOTTLE IJ ONE; +METO-169 PO; -METO25TA5 PO; +METO25TA62 PO; +METOCLOPRAMIDE HCL 5MG/ml INJ 2ml VIAL IV ONE; +MIDAZOLAM HCL 1MG/1ML-2 ML VIAL ONE; +MULTCAP45 PO; +OMEG1CAP59 PO; +OMEP20CA74 PO; +ONDANSETRON HCL 4 MG/2 ML VIAL ONE; +PROPOFOL 10 MG/ML 20 ML IV ONE; +ROCURONIUM 10MG/ML 10ML VIAL IV ONE; +SODIUM CHLORIDE LOCK 10 ML ONE; +SUCCINYLCHOLINE CHLORIDE 20 MG/ML 10ML VIAL IV ONE; +TRAZ50TA2 PO; +fentaNYL CITRATE 100 MCG/2 ML VL ONE
[2018-07-25 14:15] VITALS: BP 143/72
== END | disposition home or self-care (01) ==
LOC: SUR 09:27
PROVIDERS: ATTEND Urology
DX: N13.5 Crossing vessel and stricture of ureter without hydronephrosis (principal); Z46.6 Encounter for fitting and adjustment of urinary device; I72.9 Aneurysm of unspecified site; J44.9 Chronic obstructive pulmonary disease, unspecified; F41.9 Anxiety disorder, unspecified; E66.9 Obesity, unspecified; E78.5 Hyperlipidemia, unspecified; M10.9 Gout, unspecified; F17.210 Nicotine dependence, cigarettes, uncomplicated; Z85.46 Personal history of malignant neoplasm of prostate; Z98.890 Other specified postprocedural states; Z82.49 Family history of ischemic heart disease and other diseases of the circulatory system; Z68.33 Body mass index [BMI] 33.0-33.9, adult
CPT/HCPCS: 36415; 52310; 80053; 81001; 85007; 85027; 85610; 85730; J0330; J0744; J2250; J2405; J2704; J3010; Q9967

== ENCOUNTER → 2018-08-18 | Outpatient (CLI) | payer OTHER ==
[~2018-08-18] MED LIST changes: -CIPR-217 PO; -CIPROFLOXACIN 400MG/200ML 200 ML IV ONE; -CYAN10009 PO; -HYDROmorphone HCL 2 MG/ML VL IV PRN; -IOHEXOL 300 MG/ML 100ML BOTTLE IJ ONE; -METOCLOPRAMIDE HCL 5MG/ml INJ 2ml VIAL IV ONE; -MIDAZOLAM HCL 1MG/1ML-2 ML VIAL ONE; -OMEP20CA74 PO; -ONDANSETRON HCL 4 MG/2 ML VIAL ONE; -PROPOFOL 10 MG/ML 20 ML IV ONE; -ROCURONIUM 10MG/ML 10ML VIAL IV ONE; -SODIUM CHLORIDE LOCK 10 ML ONE; -SUCCINYLCHOLINE CHLORIDE 20 MG/ML 10ML VIAL IV ONE; -fentaNYL CITRATE 100 MCG/2 ML VL ONE
[2018-08-18 13:42] LABS: BUN/Creatinine Ratio 12.4; Calcium 8.4 mg/dL (8.5-10.1); Potassium 4.8 mmol/L (3.5-5.1)
== END | disposition home or self-care (01) ==
LOC: LAB 12:56
PROVIDERS: ATTEND Internal Medicine
DX: R31.9 Hematuria, unspecified (principal)
CPT/HCPCS: 36415; 80048; 87086

== ENCOUNTER → 2018-09-08 | Outpatient (CLI) | payer OTHER ==
[~2018-09-08] MED LIST changes: +CITA10TA70 PO; +GABA300C10 PO
== END | disposition home or self-care (01) ==
LOC: LAB 16:11
PROVIDERS: ATTEND Urology
DX: R39.0 Extravasation of urine (principal)
CPT/HCPCS: 87086

== ENCOUNTER → 2018-09-30 | Outpatient (CLI) | payer OTHER ==
[2018-09-30 11:06] LABS: Hemoglobin 11.3 g/dL (13.5-17.5); Mean Corpuscular Hemoglobin 31.5 pg (28.0-32.0); Mean Corpuscular Hgb Conc. 31.6 g/dL (32.0-36.0); Mean Corpuscular Volume 99.9 fL (80.0-100.0); Platelet Count (auto) 191 10^3/uL (140-450); Red Cell Distribution Width 16.7 % (11.8-14.3); White Blood Cell 18.2 10^3/uL (4.4-10.8)
[2018-09-30 11:17] LABS: Basophils % (manual) 0 (0.0-2.0); Blast Cells 0; Eosinophils % (manual) 0 (0-7); Metamyelocytes % 0; Myelocytes % 0; Promyelocytes % 0; Reactive Lymphocytes 0
[2018-09-30 11:40] LABS: Albumin 3.2 g/dL (3.4-5.0); Calcium 8.6 mg/dL (8.5-10.1); Potassium 4.4 mmol/L (3.5-5.1)
[2018-09-30 11:41] LABS: Band Neutrophils % (manual) 1; Lymphocytes % (manual) 75 (10.0-50.0); Monocytes % (manual) 1 (0-12)
[2018-09-30 11:42] LABS: BUN/Creatinine Ratio 16.2; Bilirubin, Total 0.6 mg/dL (0.2-1.0); Total Protein 7.6 g/dL (6.4-8.2)
== END | disposition home or self-care (01) ==
LOC: LAB 10:31
PROVIDERS: ATTEND Internal Medicine
DX: C61 Malignant neoplasm of prostate (principal)
CPT/HCPCS: 36415; 80053; 83615; 84153; 85007; 85027

== ENCOUNTER → 2018-10-17 | Outpatient (CLI) | payer OTHER | END | disposition home or self-care (01) | LOC: XY 09:45 | PROVIDERS: ATTEND Internal Medicine | DX: C79.51 Secondary malignant neoplasm of bone (principal); Z85.46 Personal history of malignant neoplasm of prostate | CPT/HCPCS: 78315; A9503 ==

== ENCOUNTER → 2018-10-26 | Outpatient (CLI) | payer OTHER ==
[~2018-10-26] MED LIST changes: +IOHEXOL 300 MG/ML 100ML BOTTLE IJ ONE; +LIDOCAINE 2%HCL (LOCAL ANESTH.) INJ 20ML MDV ONE
== END | disposition home or self-care (01) ==
LOC: XY 08:48
PROVIDERS: ATTEND Internal Medicine
DX: Z43.6 Encounter for attention to other artificial openings of urinary tract (principal); I50.9 Heart failure, unspecified; I71.4 Abdominal aortic aneurysm, without rupture; J44.9 Chronic obstructive pulmonary disease, unspecified; F41.9 Anxiety disorder, unspecified; F17.210 Nicotine dependence, cigarettes, uncomplicated; J98.8 Other specified respiratory disorders; Z85.46 Personal history of malignant neoplasm of prostate
CPT/HCPCS: 50387; 74425; C1769; Q9967; 10022; 76000

== ENCOUNTER → 2018-11-29 | Outpatient (CLI) | payer OTHER ==
[~2018-11-29] MED LIST changes: +BICA50TA13 PO; -IOHEXOL 300 MG/ML 100ML BOTTLE IJ ONE; +LEVO-28 PO; -LIDOCAINE 2%HCL (LOCAL ANESTH.) INJ 20ML MDV ONE; +LORA-622 PO
== END | disposition home or self-care (01) ==
LOC: LAB 15:00
PROVIDERS: ATTEND Physician Assistant
DX: C44.92 Squamous cell carcinoma of skin, unspecified (principal)

== ENCOUNTER 2018-12-01 18:58 | Emergency (ER) | payer OTHER ==
[~2018-12-01] VITALS: Ht 180.3 cm; Wt 95.3 kg
[~2018-12-01 18:58] MED LIST changes: -BICA50TA13 PO; -LEVO-28 PO; -LORA-622 PO
[2018-12-01 19:22] VITALS: BP 137/50
[2018-12-01 19:48] LABS: Urine Bacteria FEW /hpf (None Seen); Urine Blood 2+ /uL (Negative); Urine Mucus FEW (None Seen); Urine Specific Gravity 1.017 (1.001-1.035); Urine WBC 104 /hpf (0 - 3)
[2018-12-01 19:59] LABS: Albumin 2.8 g/dL (3.4-5.0); Anion Gap 10 (5-15); Blood Urea Nitrogen 39 mg/dL (7-18); Calcium 8.5 mg/dL (8.5-10.1); Carbon Dioxide 22 mmol/L (21-32); Chloride 107 mmol/L (98-107); Glucose 118 mg/dL (74-106); Potassium 4.8 mmol/L (3.5-5.1); Sodium 139 mmol/L (136-145)
[2018-12-01 20:02] LABS: Alanine Aminotransferase 26 U/L (16-61); Aspartate Aminotransferase 48 U/L (15-37); BUN/Creatinine Ratio 16.6; GFR African American 34 mL/min; GFR Non-African American 28 mL/min
[2018-12-01 20:05] LABS: Alkaline Phosphatase 162 U/L (45-117); Bilirubin, Total 0.2 mg/dL (0.2-1.0); Total Protein 7.1 g/dL (6.4-8.2)
[2018-12-01 20:33] LABS: Hematocrit 30.6 % (41.0-53.0); Mean Corpuscular Volume 96.8 fL (80.0-100.0); Platelet Count (auto) 175 10^3/uL (140-450); Red Blood Cells 3.16 10^6/uL (4.5-5.90)
[2018-12-01 20:35] LABS: Hemoglobin 9.9 g/dL (13.5-17.5); Mean Corpuscular Hemoglobin 31.3 pg (28.0-32.0); Mean Corpuscular Hgb Conc. 32.4 g/dL (32.0-36.0)
[2018-12-01 20:45] LABS: White Blood Cell 31.2 10^3/uL (4.4-10.8)
[2018-12-01 20:46] LABS: Band Neutrophils % (manual) 0; Basophils % (manual) 0 (0.0-2.0); Blast Cells 0; Eosinophils % (manual) 0 (0-7); Metamyelocytes % 0; Myelocytes % 0; Promyelocytes % 0; Reactive Lymphocytes 0
[2018-12-01 21:43] LABS: Lymphocytes % (manual) 78 (10.0-50.0)
[2018-12-01 21:44] LABS: Monocytes % (manual) 2 (0-12)
[2018-12-02] MEDS ORDERED: LEVO-28 PO (15:31)
[2018-12-02] MEDS ORDERED: LORA-622 PO (15:33)
[2018-12-03] MEDS ORDERED: BICA50TA13 PO (01:31)
== END 2018-12-01 20:00 | disposition left against medical advice (07) ==
LOC: ER 18:58
DX: K94.03 Colostomy malfunction (principal); Z53.21 Procedure and treatment not carried out due to patient leaving prior to being seen by health care provider
CPT/HCPCS: 36415; 74176; 80053; 81001; 84484; 85007; 85027

== ENCOUNTER 2018-12-02 07:05 | Inpatient (IN) | payer OTHER | END 2018-12-09 14:50 | disposition home or self-care (01) | LOC: ER 07:05 → TELE 10:10 → TELE-WESTW 17:08 | DX: T83.032A Leakage of nephrostomy catheter, initial encounter (principal); A41.9 Sepsis, unspecified organism; N12 Tubulo-interstitial nephritis, not specified as acute or chronic; I13.0 Hypertensive heart and chronic kidney disease with heart failure and stage 1 through stage 4 chronic kidney disease, or unspecified chronic kidney disease; R65.10 Systemic inflammatory response syndrome (SIRS) of non-infectious origin without acute organ dysfunction; E44.0 Moderate protein-calorie malnutrition; J44.9 Chronic obstructive pulmonary disease, unspecified; K80.20 Calculus of gallbladder without cholecystitis without obstruction; N18.3 Chronic kidney disease, stage 3 (moderate); Z86.14 Personal history of Methicillin resistant Staphylococcus aureus infection; Z85.6 Personal history of leukemia; Z87.442 Personal history of urinary calculi; C61 Malignant neoplasm of prostate ==